=== PATIENT | female | born 1995 | race Caucasian/White ===

== ENCOUNTER → 2017-07-01 | Outpatient (REF) | payer BC, OTHER ==
[~2017-07-01] MED LIST: BUPR1PAT10; DIHY1SPR3 NS; FLUT16SP19 NS; NORG1TAB94 PO; PREG150C33 PO; SERT-1 PO; TRAM-420 PO
[2017-07-01 11:36] LABS: PLATELET COUNT, AUTOMATED 297 K/uL (150-450)
== END ==
PROVIDERS: ATTEND Nurse Practitioner Family
DX: R11.2 Nausea with vomiting, unspecified (principal)
CPT/HCPCS: 82040; 82247; 82310; 82374; 82435; 82565; 82947; 84075; 84132; 84155; 84295; 84450; 84460; 84520; 85025

== ENCOUNTER → 2017-07-05 | Outpatient (CLI) | payer BC | LOC: LAB 13:59 | PROVIDERS: ATTEND Family Medicine | DX: R53.83 Other fatigue (principal) | CPT/HCPCS: 36415; 84439; 84443; 84481; 84482; 86376; 86800 ==

== ENCOUNTER 2018-09-20 18:14 | Emergency (ER) | payer BC, OTHER ==
--- NOTE | 2018-09-20 18:36 | ER Report ---
History and Physical Time Seen By MD: 18:36 HPI/ROS CHIEF COMPLAINT: headache HISTORY OF PRESENT ILLNESS: This is a 23 year old female. History of migraines. This morning awoke with a migraine, left side of head, photophobia, blurred vision, scalp tenderness, nausea and vomiting. No fevers or chills. Same pattern as usual for her headaches, just not going away. No weakness or numbness in the extremities. REVIEW OF SYSTEMS: Constitutional: No fever or chills. Eyes: No vision changes. ENT: No sore throat. No congestion. Cardiovascular: No chest pain. Respiratory: No cough. No shortness of breath. Gastrointestinal: No abdominal pain. Genitourinary: No dysuria. No frequency Musculoskeletal: No other musculoskeletal pain. Skin: No rashes. Neurological: As above. Allergies: Coded Allergies: latex (Verified Allergy, Severe, BREATHING, 09/20/18) kiwi (Verified Allergy, Mild, 09/20/18) Uncoded Allergies: honeydew melon (Allergy, Mild, 06/06/16) onions (Allergy, Mild, migraine, 06/06/16) Home Meds Reported Medications Metformin Hcl (METFORMIN HCL) 500 Mg Tablet, 1 TAB PO QDAY, TAB 09/20/18 Cetirizine Hcl (ZYRTEC) 10 Mg Capsule, 10 MG PO QDAY, CAPSULE 09/20/18 Sertraline Hcl (ZOLOFT) 50 Mg Tablet, 1 TAB PO QDAY, TAB 04/24/16 Tramadol Hcl (TRAMADOL HCL) 50 Mg Tablet, 50-100 MG PO Q4-6H, TAB 04/24/16 Pregabalin (LYRICA) 150 Mg Capsule, 150 MG PO TID, CAPSULE 04/24/16 Norgestimate-Ethinyl Estradiol (ORTHO TRI-CYCLEN) 1 Each Tablet, 1 EACH PO 04/24/16 Discontinued Reported Medications Buprenorphine (Butrans) 1 Each Patch.tdwk 04/24/16 Fluticasone Prop 50 Mcg Ns (FLONASE 50 MCG NS) 16 Gm [place].susp, 1 SPRAY NS QDAY, BOT 04/24/16 Reviewed Nurses Notes: Yes Hx Smoking: No Hx Substance Use Disorder: No Hx Alcohol Use: No Constitutional Vital Sign - Last 24 Hours 09/20/18 09/20/18 09/20/18 09/20/18 18:33 18:35 18:44 19:00 Temp 98.7 Pulse 76 Resp 16 B/P (MAP) 127/93 (104) 127/93 127/87 (100) Pulse Ox 93 94 O2 Delivery Room Air 09/20/18 09/20/18 09/20/18 09/20/18 19:30 19:44 20:00 20:05 Pulse 80 73 B/P (MAP) 120/85 (97) 112/75 (87) Pulse Ox 94 95 Physical Exam General Appearance: The patient is alert. No acute distress. Eyes: Pupils are equal, round. No pallor, injection or icterus. ENT: Mucous membranes are moist. Normal oral mucosa. Posterior oropharynx is normal. Neck: Supple and non tender. Respiratory: Lungs are clear to auscultation. Cardiovascular: Regular rate and rhythm. No murmurs, gallops or rubs. Neurological: Alert and oriented x3. Cranial nerves II through XII show no acute deficits on my exam. No focal neurologic deficits Skin: Warm and dry. No rashes. Scalp tenderness on the left scalp. DIFFERENTIAL DIAGNOSIS: After history and physical exam, differential diagnosis was considered for migraine headache. Medical Decision Making Data Points Result Diagram: 09/20/18191409/20/181914 Laboratory Hematology Test 09/20/18 19:15 Red Blood Count 5.35 M/uL (4.17-5.56) Mean Corpuscular Volume 84.9 fL (80.0-96.0) Mean Corpuscular Hemoglobin 28.2 pg (26.0-33.0) Mean Corpuscular Hemoglobin Concent 33.3 g/dL (32.0-36.0) Red Cell Distribution Width 14.1 % (11.5-14.5) Mean Platelet Volume 8.7 fL (7.2-11.1) Neutrophils (%) (Auto) 70.5 % (39.4-72.5) Lymphocytes (%) (Auto) 23.4 % (17.6-49.6) Monocytes (%) (Auto) 5.3 % (4.1-12.4) Eosinophils (%) (Auto) 0.2 % (0.4-6.7) Basophils (%) (Auto) 0.6 % (0.3-1.4) Nucleated RBC Relative Count (auto) 0.0 /100WBC Neutrophils # (Auto) 5.8 K/uL (2.0-7.4) Lymphocytes # (Auto) 1.9 K/uL (1.3-3.6) Monocytes # (Auto) 0.4 K/uL (0.3-1.0) Eosinophils # (Auto) 0.0 K/uL (0.0-0.5) Basophils # (Auto) 0.0 K/uL (0.0-0.1) Nucleated RBC Absolute Count (auto) 0.00 K/uL Erythrocyte Sedimentation Rate 7 mm/HOUR (0-20) Sodium Level 136 mmol/L (137-145) Potassium Level 4.0 mmol/L (3.5-5.0) Chloride Level 104 mmol/L (98-107) Carbon Dioxide Level 25 mmol/L (22-31) Blood Urea Nitrogen 8 mg/dl (7-18) Creatinine 0.60 mg/dl (0.52-1.04) Glomerular Filtration Rate Calc > 60.0 Random Glucose 89 mg/dl (75-110) Calcium Level 8.4 mg/dl (8.4-10.2) Total Bilirubin < 0.1 mg/dl (0.2-1.3) Aspartate Amino Transf (AST/SGOT) 27 U/L (0-35) Alanine Aminotransferase (ALT/SGPT) 17 U/L (0-56) Alkaline Phosphatase 105 U/L (0-126) Total Protein 7.5 g/dl (6.3-8.2) Albumin 4.5 g/dl (3.5-5.0) Chemistry Test 09/20/18 19:15 White Blood Count 8.2 k/uL (4.5-11.0) Red Blood Count 5.35 M/uL (4.17-5.56) Hemoglobin 15.1 g/dL (12.0-16.0) Hematocrit 45.5 % (34.0-47.0) Mean Corpuscular Volume 84.9 fL (80.0-96.0) Mean Corpuscular Hemoglobin 28.2 pg (26.0-33.0) Mean Corpuscular Hemoglobin Concent 33.3 g/dL (32.0-36.0) Red Cell Distribution Width 14.1 % (11.5-14.5) Platelet Count 303 K/uL (150-450) Mean Platelet Volume 8.7 fL (7.2-11.1) Neutrophils (%) (Auto) 70.5 % (39.4-72.5) Lymphocytes (%) (Auto) 23.4 % (17.6-49.6) Monocytes (%) (Auto) 5.3 % (4.1-12.4) Eosinophils (%) (Auto) 0.2 % (0.4-6.7) Basophils (%) (Auto) 0.6 % (0.3-1.4) Nucleated RBC Relative Count (auto) 0.0 /100WBC Neutrophils # (Auto) 5.8 K/uL (2.0-7.4) Lymphocytes # (Auto) 1.9 K/uL (1.3-3.6) Monocytes # (Auto) 0.4 K/uL (0.3-1.0) Eosinophils # (Auto) 0.0 K/uL (0.0-0.5) Basophils # (Auto) 0.0 K/uL (0.0-0.1) Nucleated RBC Absolute Count (auto) 0.00 K/uL Erythrocyte Sedimentation Rate 7 mm/HOUR (0-20) Glomerular Filtration Rate Calc > 60.0 Calcium Level 8.4 mg/dl (8.4-10.2) Total Bilirubin < 0.1 mg/dl (0.2-1.3) Aspartate Amino Transf (AST/SGOT) 27 U/L (0-35) Alanine Aminotransferase (ALT/SGPT) 17 U/L (0-56) Alkaline Phosphatase 105 U/L (0-126) Total Protein 7.5 g/dl (6.3-8.2) Albumin 4.5 g/dl (3.5-5.0) ED Course/Re-evaluation Clinical Indication for ER IV: IV Access ED Course Improved with Reglan 10mg IV, Benadryl 50mg IV, Toradol 30mg IV and a liter of normal saline. Decision to Disposition Date: Sep 20, 2018 Decision to Disposition Time: 20:17 Depart Departure Latest Vital Signs Vital Signs Date Time Temp Pulse Resp B/P (MAP) Pulse Ox O2 Delivery O2 Flow Rate FiO2 09/20/18 20:05 73 95 09/20/18 20:00 112/75 (87) 09/20/18 18:35 98.7 16 Room Air Impression: Primary Impression: Migraine Condition: Improved Disposition: HOME OR SELF-CARE Referrals: BARON BURKS DO (PCP) Patient Instructions: Migraine Headache (ED) Problem Qualifiers Primary Impression: Migraine Migraine type: unspecified Status migrainosus presence: without status migrainosus Intractability: not intractable Qualified Codes: G43.909 - Migraine, unspecified, not intractable, without status migrainosus BARON BELLO MD Sep 20, 2018 18:36
[2018-09-20] MEDS ORDERED: METF-450 PO (18:39)
[2018-09-20] MEDS ORDERED: CETI10CA8 PO (18:39)
[2018-09-20] MEDS ORDERED: KETOROLAC 30 MG/ML VIAL IVP ONE (19:00)
[2018-09-20] MEDS ORDERED: METOCLOPRAMIDE 10 MG/2 ML SDV IVP ONE (19:00)
[2018-09-20] MEDS ORDERED: NS(*) 0.9% 1000 ML BAG 1,000 ML IV ONE (19:00)
[2018-09-20] MEDS ORDERED: diphenhydrAMINE 50 MG/ML VIAL IVP ONE (19:00)
[2018-09-20 19:41] LABS: PLATELET COUNT, AUTOMATED 303 K/uL (150-450)
[2018-09-20 20:00] VITALS: BP 112/75
== END 2018-09-20 20:29 | disposition home or self-care (01) ==
LOC: ER 18:59
DX: G43.909 Migraine, unspecified, not intractable, without status migrainosus (principal)
CPT/HCPCS: 85025; 85651; 96361; 96374; 96375; 99284; J1200; J1885; J2765; J7030; 82040; 82247; 82310; 82374; 82435; 82565; 82947; 84075; 84132; 84155; 84295; 84450; 84460; 84520